=== PATIENT | female | born 1975 | race African-American/Black ===

== ENCOUNTER 2017-07-20 12:33 | Emergency (ER) | payer OTHER ==
--- NOTE | 2017-07-20 12:45 | PDOC ---
History of Present Illness - General History Source: Patient, EMS Exam Limitations: Intoxication - History of Present Illness Initial Comments: 07/20/17 13:03 The patient is a 41 year old female, with a significant PMH of hypertension, diabetes mellitus, who presents to the emergency department via EMS with alcohol intoxication. As per EMS, the patient was found with 7 empty pocket size bottles of vodka. Upon presentation, the patient is sleeping but arousable. The patient is a poor historian secondary to alcohol intoxication. Allergies: NKA - General Chief Complaint: Alcohol intoxication Stated Complaint: INTOX Time Seen by Provider: 07/20/17 12:44 Past History - Past Medical History Allergies/Adverse Reactions: Allergies Allergy/AdvReac Type Severity Reaction Status Date / Time No Known Allergies Allergy Verified 07/20/17 12:37 Home Medications: Ambulatory Orders Esomeprazole Magnesium [Nexium 24Hr] 40 mg PO DAILY 07/20/17 Famotidine [Pepcid] 40 mg PO DAILY 07/20/17 Trazodone HCl 200 mg PO HS 07/20/17 Review of Systems - Review of Systems Able to Perform ROS?: No (Secondary to intox. ) *Physical Exam - Vital Signs Last Vital Signs Temp Pulse Resp BP Pulse Ox 97.8 F 79 16 111/78 95 07/20/17 12:39 07/20/17 12:39 07/20/17 12:39 07/20/17 12:39 07/20/17 12:39 - Physical Exam Comments: 07/20/17 13:08 GENERAL: Somnolent but arousable. In no acute distress HEAD: No signs of trauma EYES: PERRLA, EOMI, sclera anicteric, conjunctiva clear ENT: Auricles normal inspection, hearing grossly normal, nares patent, oropharynx clear without exudates. Moist mucosa NECK: Normal ROM, supple, no lymphadenopathy, JVD, or masses LUNGS: Breath sounds equal, clear to auscultation bilaterally. No wheezes, and no crackles HEART: Regular rate and rhythm, normal S1 and S2, no murmurs, rubs or gallops ABDOMEN: Soft, nontender, normoactive bowel sounds. No guarding, no rebound. No masses EXTREMITIES: Normal range of motion, no edema. No clubbing or cyanosis. No cords, erythema, or tenderness NEUROLOGICAL: Cranial nerves II through XII grossly intact. Normal speech. SKIN: Warm, Dry, normal turgor, no rashes or lesions noted. ED Treatment Course - LABORATORY CBC & Chemistry Diagram: 07/20/17 12:58 07/20/17 12:58 *DC/Admit/Observation/Transfer - Attestations Scribe Attestion: 07/20/17 13:04 Documentation prepared by Du Salazar, acting as ophthalmic medical assistant for Candelaria Land MD. Diagnosis at time of Disposition: Intoxication - Discharge Dispostion Disposition: ELOPED Condition at time of disposition: Stable
[2017-07-20 12:48] VITALS: BP 111/78; PULSE 79; TEMP 97.8; BMI 21.2
[2017-07-20 13:45] LABS: BASO % 0.4 % (0-2.0); EOS % 1.9 % (0-4.5); HEMATOCRIT 33.2 % (32.4-45.2); LYMPH % 49.8 % (8-40); MCH 26.5 pg (25.7-33.7); MCHC 33.1 g/dl (32.0-36.0); MEAN PLT VOLUME 7.8 fl (7.5-11.1); MONO % 2.9 % (3.8-10.2); PLATELET COUNT 345 K/MM3 (134-434); RBC 4.15 M/mm3 (3.60-5.2); RDW 17.4 % (11.6-15.6); WHITE BLOOD COUNT 7.8 K/mm3 (4.0-10.0)
[2017-07-20 13:58] LABS: ALBUMIN 3.8 g/dl (3.4-5.0); ANION GAP 10 (8-16); BILIRUBIN,TOTAL 0.1 mg/dL (0.2-1.0); BLOOD UREA NITROGEN 16 mg/dL (7-18); CALCIUM 8.8 mg/dL (8.5-10.1); CHLORIDE 104 mmol/L (98-107); CO2 27 mmol/L (21-32); CREATININE 0.9 mg/dL (0.55-1.02); GLUCOSE,RANDOM 147 mg/dL (74-106); POTASSIUM 3.7 mmol/L (3.5-5.1); SGOT/AST 25 U/L (15-37); SGPT/ALT 31 U/L (12-78); SODIUM 141 mmol/L (136-145); TOT PROT 8.3 g/dl (6.4-8.2)
[2017-07-20 14:06] LABS: ALK PHOS 103 U/L (45-117)
== END 2017-07-20 15:58 | disposition left against medical advice (07) ==
LOC: EDSEX 12:33 → JER 12:33
DX: F10.120 Alcohol abuse with intoxication, uncomplicated (principal); I10 Essential (primary) hypertension; E11.9 Type 2 diabetes mellitus without complications
CPT/HCPCS: 36415; 80053; 80307; 82962; 85025; 99283-25

== ENCOUNTER 2017-07-20 16:57 | Emergency (ER) | payer OTHER ==
[2017-07-20] MEDS ORDERED: HALOPERIDOL LACTATE 5 MG/ML IM ONE (16:59)
[2017-07-20] MEDS ORDERED: LORazepam 2 MG/ML SDV VIAL ONE (17:02)
[2017-07-20] MEDS ORDERED: HALOPERIDOL LACTATE 5 MG/ML ONE (17:02)
--- NOTE | 2017-07-20 17:33 | PDOC ---
History of Present Illness - General Chief Complaint: Alcohol intoxication Stated Complaint: Alcohol intoxication Time Seen by Provider: 07/20/17 16:59 - History of Present Illness Initial Comments: 07/20/17 17:22 41 year old female, with a h/o DM, and HTN p/w Etoh intoxication. Patient was intially brought into hospital by EMS after found sleeping, butu arosuable in parking lot of [facility] and with 7 empty travel size bottles of vodka. History is limited d/t patient agitation and refusal to answer select questions. Patient eloped from earlier ED visit and was brought back in by ambulance. Patient currently arrives agitated and yelling profanities and making verbal threats to multiple staff members, with police at bedside. Not in police custody. Patient states that she is tired and does wish to "do this anymore." She states that she is prepared to , but does not have a plan, and denies SI. She believes that she is undergoing withdrawal from alcohol and states that she can predict alcohol withdrawal symptoms from previous experience. Denies F/C, N/V, CP, SOB, abdominal pain, diarrhea, constipation, urinary complaints, weakness, lightheadedness, sensory changes. Denies fall, head/neck/ back trauma, or LOC. PMH: as noted above SHx: She denies h/o IVDA, or tobacco use. She reports daily vodka intake for 5+ years. Patient desires rehab. Past History - Past Medical History Allergies/Adverse Reactions: Allergies Allergy/AdvReac Type Severity Reaction Status Date / Time No Known Allergies Allergy Verified 07/20/17 17:36 Home Medications: Ambulatory Orders Esomeprazole Magnesium [Nexium 24Hr] 40 mg PO DAILY 07/20/17 Famotidine [Pepcid] 40 mg PO DAILY 07/20/17 Trazodone HCl 200 mg PO HS 07/20/17 COPD: No Diabetes: Yes Psychiatric Problems: Yes (depression, alcoholism.) - Suicide/Smoking/Psychosocial Hx Smoking History: Unknown if ever smoked Have you smoked in the past 12 months: No If you are a former smoker, when did you quit?: 2009 Hx Alcohol Use: Yes (vodka) Drug/Substance Use Hx: No Substance Use Type: Alcohol Review of Systems - Review of Systems Comments:: 07/20/17 17:35 Unable to provide accurate ROS d/t inebriation. *Physical Exam - Physical Exam Comments: 07/20/17 18:14 GENERAL: Awake, alert, and fully oriented. Agitated. Patient partially compliant with physically exam. HEAD: No signs of trauma, normocephalic, atraumatic EYES: PERRLA, EOMI, sclera anicteric, conjunctiva clear ENT: Absent tongue fassicuclations. Auricles normal inspection, hearing grossly normal, nares patent, oropharynx clear without exudates. Moist mucosa NECK: Normal ROM, supple, no lymphadenopathy, JVD, or masses LUNGS: No distress, speaks full sentences, clear to auscultation bilaterally HEART: Regular rate and rhythm, normal S1 and S2, no murmurs, rubs or gallops, peripheral pulses normal and equal bilaterally. EXTREMITIES : Normal inspection, Normal range of motion, no edema. No clubbing or cyanosis. NEUROLOGICAL: Cranial nerves II through XII grossly intact. Normal speech, normal gait, no focal sensorimotor deficits PSYCH: Patient agitated with dysthmic mood and affect congruent with mood. No SI , HI. Speech non tangible, and non pressured. No flight of ideas. SKIN: Warm, Dry, normal turgor, no rashes or lesions noted ED Treatment Course - Medications Given in the ED: ED Medications Discontinued Medications Generic Name Dose Route Start Last Admin Trade Name Freq PRN Reason Stop Dose Admin Haloperidol 5 mg 07/20/17 16:59 07/20/17 17:18 Haldol Injection (Fast Acting) - IM 07/20/17 17:00 5 mg ONCE ONE Administration Lorazepam 2 mg 07/20/17 16:59 07/20/17 17:03 Ativan Injection - IM 07/20/17 17:00 2 mg ONCE ONE Administration Medical Decision Making - Medical Decision Making 07/20/17 17:36 41 year old female, with a h/o DM, HTN, EtoH dependence p/w Etoh intoxication, and returns to ED following elopmenet from earlier ED encounter. VSS, AF. Patient recieved 5 mg Haldol, and 2 mg Lorazepam following acute agitation and combativeness. We will hold patient for sobriety and place on one-to-one observation d/t risk of elopement in current inebriated/altered state. CBC, CMP from prior ED encounter ( 1200 06/12/18) were unremarkable with EtoH of 416. Clinically patient without evidence of EtoH withdrawal, or DT. Patient denies SI , and without plan or intent or evidence of self harm/injurous behavior. ED Course: Patient is sedated and resting with bedside sitter observing. 07/20/17 18:28 *DC/Admit/Observation/Transfer Diagnosis at time of Disposition: Intoxication - Discharge Dispostion Condition at time of disposition: Stable Decision to Admit order: No - Referrals - Patient Instructions Printed Discharge Instructions: DI for Alcohol Abuse Additional Instructions: Please return to the emergency department with any new or worsening symptoms or concerns. Please follow up with your primary care physician within 72 hours. - Post Discharge Activity - Attestations Physician Attestion: 07/20/17 18:27 I attest to the information provided in this note.
[2017-07-20 17:36] VITALS: BMI 21.2
--- NOTE | 2017-07-21 06:16 | PDOC ---
*Physical Exam - Vital Signs Last Vital Signs Temp Pulse Resp BP Pulse Ox 97.9 F 92 H 16 122/79 95 07/20/17 17:26 07/20/17 17:26 07/20/17 17:26 07/20/17 17:26 07/20/17 17:26 <Remi Diehl - Last Filed: 07/21/17 06:13> - Vital Signs Last Vital Signs Temp Pulse Resp BP Pulse Ox 97.8 F 69 16 116/66 97 07/21/17 07:00 07/21/17 07:00 07/21/17 07:00 07/21/17 07:00 07/21/17 07:00 <Zhang Tatum - Last Filed: 07/21/17 12:03> ED Treatment Course - Medications Given in the ED: ED Medications Discontinued Medications Generic Name Dose Route Start Last Admin Trade Name Kemq PRN Reason Stop Dose Admin Haloperidol 5 mg 07/20/17 16:59 07/20/17 17:18 Haldol Injection (Fast Acting) - IM 07/20/17 17:00 5 mg ONCE ONE Administration Lorazepam 2 mg 07/20/17 16:59 07/20/17 17:03 Ativan Injection - IM 07/20/17 17:00 2 mg ONCE ONE Administration <Remi Diehl - Last Filed: 07/21/17 06:13> - LABORATORY CBC & Chemistry Diagram: 07/21/17 10:34 07/21/17 10:34 - ADDITIONAL ORDERS Additional order review: Laboratory Results 07/21/17 07/21/17 07/21/17 10:34 10:34 10:34 WBC RBC Hgb Hct MCV MCH MCHC RDW Plt Count MPV Absolute Neuts (auto) Neutrophils % Lymphocytes % Monocytes % Eosinophils % Basophils % Nucleated RBC % Serum , Qual Negative Urine Color Ltyellow Urine Appearance Clear Urine pH 8.0 Ur Specific [place] 1.020 Urine Protein Negative Urine Glucose (UA) Negative Urine Ketones Negative Urine Blood Negative Urine Nitrite Negative Urine Bilirubin Negative Urine Urobilinogen Negative Ur Leukocyte Esterase Negative Opiates Screen Negative Methadone Screen Negative Barbiturate Screen Negative Phencyclidine Screen Negative Ur Amphetamines Screen Negative MDMA (Ecstasy) Screen Negative Benzodiazepines Screen Negative Cocaine Screen Negative U Marijuana (THC) Screen Negative 07/21/17 10:34 WBC 7.0 RBC 3.79 Hgb 9.9 L Hct 30.2 L MCV 79.7 L MCH 26.2 MCHC 32.9 RDW 17.6 H Plt Count 261 D MPV 8.1 Absolute Neuts (auto) 3.5 Neutrophils % 50.7 Lymphocytes % 42.9 H Monocytes % 4.2 Eosinophils % 1.1 Basophils % 1.1 Nucleated RBC % 0 Serum , Qual Urine Color Urine Appearance Urine pH Ur Specific [place] Urine Protein Urine Glucose (UA) Urine Ketones Urine Blood Urine Nitrite Urine Bilirubin Urine Urobilinogen Ur Leukocyte Esterase Opiates Screen Methadone Screen Barbiturate Screen Phencyclidine Screen Ur Amphetamines Screen MDMA (Ecstasy) Screen Benzodiazepines Screen Cocaine Screen U Marijuana (THC) Screen 07/21/17 10:34 RBC 3.79 MCV 79.7 L MCHC 32.9 RDW 17.6 H MPV 8.1 Neutrophils % 50.7 Lymphocytes % 42.9 H Monocytes % 4.2 Eosinophils % 1.1 Basophils % 1.1 - Medications Given in the ED: ED Medications Discontinued Medications Generic Name Dose Route Start Last Admin Trade Name Sandar PRN Reason Stop Dose Admin Haloperidol 5 mg 07/20/17 16:59 07/20/17 17:18 Haldol Injection (Fast Acting) - IM 07/20/17 17:00 5 mg ONCE ONE Administration Lorazepam 2 mg 07/20/17 16:59 07/20/17 17:03 Ativan Injection - IM 07/20/17 17:00 2 mg ONCE ONE Administration <Zhang Tatum - Last Filed: 07/21/17 12:03> Medical Decision Making - Medical Decision Making 07/21/17 06:14 after 13 hours of being here in the department, pt now wants to go to detox. Pt has not yet been medically cleared. Pt pending labs. <Remi Diehl - Last Filed: 07/21/17 06:13> - Medical Decision Making 07/21/17 12:02 Labs unremarkable. Pt reassessed - now awake, alert. Calm, cooperative, denies SI/HI/AVH. [facility]ing [facility] <Zhang Tatum - Last Filed: 07/21/17 12:03> *DC/Admit/Observation/Transfer <Remi Diehl - Last Filed: 07/21/17 06:13> <RcZhang - Last Filed: 07/21/17 12:03> Diagnosis at time of Disposition: Intoxication - Discharge Dispostion Condition at time of disposition: Stable - Referrals - Patient Instructions Printed Discharge Instructions: DI for Alcohol Abuse Additional Instructions: Please return to the emergency department with any new or worsening symptoms or concerns. Please follow up with your primary care physician within 72 hours. - Post Discharge Activity
[2017-07-21 07:35] VITALS: BP 116/66; PULSE 69; TEMP 97.8
[2017-07-21 11:16] LABS: BASO % 1.1 % (0-2.0); EOS % 1.1 % (0-4.5); HEMATOCRIT 30.2 % (32.4-45.2); HEMOGLOBIN 9.9 GM/dL (10.7-15.3); LYMPH % 42.9 % (8-40); MCH 26.2 pg (25.7-33.7); MCHC 32.9 g/dl (32.0-36.0); MEAN CELL VOLUME 79.7 fl (80-96); MEAN PLT VOLUME 8.1 fl (7.5-11.1); MONO % 4.2 % (3.8-10.2); NEUT % 50.7 % (42.8-82.8); PLATELET COUNT 261 K/MM3 (134-434); RBC 3.79 M/mm3 (3.60-5.2); RDW 17.6 % (11.6-15.6)
[2017-07-21 11:27] LABS: URINE APPEARANCE CLEAR; URINE BILIRUBIN NEGATIVE (<2.0 mg/dL); URINE BLOOD NEGATIVE (NEGATIVE); URINE COLOR LTYELLOW; URINE GLUCOSE (UA) NEGATIVE (NEGATIVE); URINE KETONE NEGATIVE (NEGATIVE); URINE LEUK ESTERASE NEGATIVE (NEGATIVE); URINE NITRITE NEGATIVE (NEGATIVE); URINE PROTEIN NEGATIVE (NEGATIVE); URINE UROBILINOGEN NEGATIVE mg/dL (0.2-1.0)
[2017-07-21 11:34] LABS: ALBUMIN 3.3 g/dl (3.4-5.0); ANION GAP 9 (8-16); BLOOD UREA NITROGEN 15 mg/dL (7-18); CALCIUM 8.4 mg/dL (8.5-10.1); CHLORIDE 100 mmol/L (98-107); CO2 26 mmol/L (21-32); GLUCOSE,RANDOM 113 mg/dL (74-106); POTASSIUM 3.8 mmol/L (3.5-5.1); SGPT/ALT 27 U/L (12-78); SODIUM 135 mmol/L (136-145)
[2017-07-21 11:37] LABS: ALK PHOS 86 U/L (45-117); BILIRUBIN,TOTAL 0.3 mg/dL (0.2-1.0); CREATININE 0.7 mg/dL (0.55-1.02); SGOT/AST 31 U/L (15-37); TOT PROT 7.1 g/dl (6.4-8.2)
[2017-07-21 12:01] LABS: COCAINE, UR NEGATIVE ng/ml (CUTOFF=300); METHADONE, UR NEGATIVE ng/ml (CUTOFF=300); OPIATES, URI NEGATIVE ng/ml (CUTOFF=300); PHENCYCLIDINE,URINE NEGATIVE ng/ml (CUTOFF=25); URINE AMPHETAMINES NEGATIVE ng/ml (CUTOFF=500); URINE BARBITURATES NEGATIVE ng/ml (CUTOFF=200); URINE BENZODIAZEPINES NEGATIVE ng/ml (CUTOFF=200)
== END 2017-07-21 12:28 | disposition home or self-care (01) ==
LOC: JER 16:57
PROC: 3E023NZ Introduction of Analgesics, Hypnotics, Sedatives into Muscle, Percutaneous Approach (ICD-10-PCS; principal; 2017-07-20)
DX: F10.120 Alcohol abuse with intoxication, uncomplicated (principal); F32.9 Major depressive disorder, single episode, unspecified; Z87.891 Personal history of nicotine dependence; E11.9 Type 2 diabetes mellitus without complications
CPT/HCPCS: 36415; 80053; 80307; 81003; 82962; 84703; 85025; 99284-25

== ENCOUNTER 2017-07-21 13:39 | Inpatient (IN) | payer OTHER ==
[2017-07-21 13:43] VITALS: BMI 23.4
--- NOTE | 2017-07-21 14:21 | HP ---
CIWA Score - CIWA Score Nausea/Vomitin Muscle Tremors: 2 Anxiety: 3 Agitation: 2 Paroxysmal Sweats: 3 Orientation: 0-Oriented Tacttile Disturbances: 1-Very Mild Itch/Numbness Auditory Disturbances: 0-None Visual Disturbances: 0-None Headache: 0-None Present CIWA-Ar Total Score: 13 Admission ROS S - HPI Chief Complaint: I need to detox from alcohol -i have been slipping up. Allergies/Adverse Reactions: Allergies Allergy/AdvReac Type Severity Reaction Status Date / Time No Known Allergies Allergy Verified 07/21/17 13:57 History of Present Illness: Pt began drinking at age 21 . Pt began abusing alcohol at age 27 pt stopped using alcohol and releapsed 1 yr ago . Exam Limitations: No Limitations - Ebola screening Have you traveled outside of the country in the last 21 days: No Have you had contact with anyone from an Ebola affected area: No Have you been sick,other than usual withdrawal symptoms: No Do you have a fever: No - Review of Systems Constitutional: Loss of Appetite, Malaise, Night Sweats, Changes in sleep EENT: reports: No Symptoms Reported Respiratory: reports: No Symptoms reported Cardiac: reports: Other (open heart surgery at age 9 for valvoplasty) GI: reports: Nausea, Indigestion : reports: No Symptoms Reported Musculoskeletal: reports: Back Pain, Joint Pain, Muscle Pain Integumentary: reports: No Symptoms Reported Neuro: reports: Tremors, Dizziness, Other (blackouts - last yesterday) Endocrine: reports: Increased Hunger, Increased Thirst, Increased Urine Hematology: reports: Anemia, Easy Bruising Psychiatric: reports: Depressed Other Systems: Reviewed and Negative Patient History - Patient Medical History Hx Anemia: Yes (feso4) Hx Asthma: No Hx Chronic Obstructive Pulmonary Disease (COPD): No Hx Cancer: No Hx Cardiac Disorders: Yes (valave replacement at age 9 yrs old.) Hx Congestive Heart Failure: No Hx Hypertension: Yes (on meds.) Hx Hypercholesterolemia: Yes (pravachol ) Hx Pacemaker: No HX Cerebrovascular Accident: No Hx Seizures: No Hx Dementia: No Hx Diabetes: Yes (metformin 850mg bid ) Hx Gastrointestinal Disorders: Yes (Pt states she has a hx of peptic ulcer.) Hx Liver Disease: No Hx Genitourinary Disorders: No Hx Sexually Transmitted Disorders: No Hx Renal Disease (ESRD): No Hx Thyroid Disease: No Hx Human Immunodeficiency Virus (HIV): No Hx Hepatitis C: No Hx Depression: Yes (ptsd) Hx Suicide Attempt: No Hx Bipolar Disorder: No Hx Schizophrenia: No - Patient Surgical History Past Surgical History: Yes Hx Neurologic Surgery: No Hx Cataract Extraction: No Hx Cardiac Surgery: Yes (Valve replacement at age 9 yrs old.) Hx Lung Surgery: No Hx Breast Surgery: No Hx Breast Biopsy: No Hx Abdominal Surgery: No Hx Appendectomy: No Hx Cholecystectomy: No Hx Genitourinary Surgery: No Hx Section: No Hx Orthopedic Surgery: No Hx Hysterectomy: No Anesthesia Reaction: No - PPD History Previous Implant?: Yes Documented Results: Positive w/proof Implanted On Prior R Admission?: No PPD to be Administered?: No - Reproductive History Patient is a Female of Child Bearing Age (11 -55 yrs old): Yes Last Menstrual Period: 07/07/17 Patient : No - Smoking Cessation Smoking history: Former smoker Have you smoked in the past 12 months: No If you are a former smoker, when did you quit?: 2009 Hx Chewing Tobacco Use: No Initiated information on smoking cessation: No 'Breaking Loose' booklet given: 07/21/17 - Substance & Tx. History Hx Alcohol Use: Yes Hx Substance Use: No Substance Use Type: Alcohol Hx Substance Use Treatment: Yes ([facility]. ) - Substances Abused Alcohol Route: Oral Frequency: Daily Amount used: 1 PINT VODKA Age of first use: 27 Date of Last Use: 07/20/17 Family Disease History - Family Disease History Family Disease History: Diabetes: Mother (ovarian ), CA: Mother Admission Physical Exam S - Vital Signs Vital Signs: Vital Signs - 24 hr 07/21/17 13:40 Temperature 98.8 F Pulse Rate 89 Respiratory 20 Rate Blood Pressure 155/103 - Physical General Appearance: Yes: No Apparent Distress, Tremorous, Anxious HEENTM: Yes: EOMI, Hearing grossly Normal, Normocephalic, Normal Voice, [place] Respiratory: Yes: Chest Non-Tender, Lungs Clear, Normal Breath Sounds, No Respiratory Distress Breast: Yes: Breast Exam Deferred Cardiology: Yes: Irregular, Surgical Scar Abdominal: Yes: Non Tender, Flat, Soft, Increased Bowel Sounds Genitourinary: Yes: Frequency Back: Yes: Decreased Range of Motion Musculoskeletal: Yes: Back pain, Muscle Pain Extremities: Yes: Tremors Neurological: Yes: automobile washer steam II-XII NML intact, Fully Oriented, Alert, Motor Strength 5/5, Normal Response, Finger to Nose, Depressed Affect Integumentary: Yes: Moist Lymphatic: Yes: Within Normal Limits - Diagnostic (1) Chronic alcoholism Current Visit: Yes Status: Chronic (2) Diabetes 1.5, managed as type 2 Current Visit: Yes Status: Chronic (3) Hyperlipidemia Current Visit: Yes Status: Chronic Qualifiers: Hyperlipidemia type: unspecified Qualified Code(s): E78.5 - Hyperlipidemia , unspecified (4) Anemia Current Visit: Yes Status: Chronic Qualifiers: Anemia type: unspecified type Qualified Code(s): D64.9 - Anemia, unspecified (5) History of valvuloplasty Current Visit: Yes Status: Chronic Cleared for Admission [facility] - Detox or Rehab [facility] Level of Care: Medically Managed Detox Regimen/Protocol: Librium [facility] Breath Alcohol Content Breath Alcohol Content: 0 Urine Pregancy Test - Result Urine Test Results: Negative- NO Line Present Urine Drug Screen - Results Drug Screen Negative: No Urine Drug Screen Results: BZO-Benzodiazepines, TCA-Tricyclic Antidepress
[2017-07-21] MEDS ORDERED: guaiFENesin/D-METHORPHAN HB 10 ML UNIT-DOSE CUPS PO PRN (15:49)
[2017-07-21] MEDS ORDERED: ACETAMINOPHEN 325 MG TABLET (FP) PO PRN (15:49)
[2017-07-21] MEDS ORDERED: MENTHOL/PHENOL 1 EACH UD MM PRN (15:49)
[2017-07-21] MEDS ORDERED: LOPERAMIDE HCL 2 MG CAPSULE PO PRN (15:49)
[2017-07-21] MEDS ORDERED: MAGNESIUM CITRATE 300 ML BOTTLE PO PRN (15:49)
[2017-07-21] MEDS ORDERED: chlordiazePOXIDE HCL 25 MG CAPSULE PO ONE (15:49)
[2017-07-21] MEDS ORDERED: MAGNESIUM HYDROX 2400MG/30ML ORAL SUSPENSION 30 ML CUP PO PRN (15:49)
[2017-07-21] MEDS ORDERED: IBUPROFEN 400 MG TABLET (FP) PO PRN (15:49)
[2017-07-21] MEDS ORDERED: MAG HYDROX/AL HYDROX/SIMETH 30 ML UNIT-DOSE CUP PO PRN (15:49)
[2017-07-21] MEDS ORDERED: P-EPHED 60MG/TRIPROLIDI 2.5MG TABLET PO PRN (15:49)
[2017-07-21] MEDS: chlordiazePOXIDE HCL 25 MG CAPSULE PO SCH ×2 (16:44→22:11)
[2017-07-21 18:22] LABS: URINE APPEARANCE SLCLOUDY; URINE BILIRUBIN NEGATIVE (<2.0 mg/dL); URINE COLOR YELLOW; URINE GLUCOSE (UA) NEGATIVE (NEGATIVE); URINE KETONE NEGATIVE (NEGATIVE); URINE LEUK ESTERASE NEGATIVE (NEGATIVE); URINE NITRITE NEGATIVE (NEGATIVE); URINE UROBILINOGEN NEGATIVE mg/dL (0.2-1.0)
[2017-07-21 18:29] LABS: URINE PROTEIN 1+ (NEGATIVE)
[2017-07-21 18:30] LABS: EPI CELLS MODERATE /HPF (FEW); URINE MUCUS RARE
[2017-07-21] MEDS: chlordiazePOXIDE HCL 25 MG CAPSULE PO PRN (21:15)
[2017-07-21] MEDS ORDERED: PANTOPRAZOLE 40 MG TABLET (FP) PO ONE (21:15)
[2017-07-21] MEDS: ATORVASTATIN CA 10 MG TABLET (FP) PO SCH (22:10)
[2017-07-21] MEDS: THIAMINE HCL 100 MG TABLET (FP) PO SCH (22:11)
[2017-07-21] MEDS: MELATONIN 5 MG TABLETS PO PRN (22:13)
[2017-07-22] MEDS: chlordiazePOXIDE HCL 25 MG CAPSULE PO SCH ×4 (09:14→22:10)
[2017-07-22] MEDS: FERROUS SO4 325 MG TABLET (FP) PO SCH (09:14)
--- NOTE | 2017-07-22 09:47 | PN ---
S CIWA - CIWA Score Nausea/Vomitin-Mild Nausea/No Vomiting Muscle Tremors: 2 Anxiety: 1-Mildly Anxious Agitation: 0-Normal Activity Paroxysmal Sweats: 1-Minimal Palms Moist Orientation: 0-Oriented Tacttile Disturbances: 0-None Auditory Disturbances: 0-None Visual Disturbances: 0-None Headache: 1-Very Mild CIWA-Ar Total Score: 6 BHS Progress Note (SOAP) Subjective: Patient evaluated while in bed. Alert and oriented x 3. In no acute distress. Complain of mild nausea with no vomiting or diarrhea. Admitted yesterday for Alcohol withdrawal. Has history of GERD. Laboratory Tests 07/21/17 07/21/17 07/22/17 14:17 18:02 05:46 POC Glucometer 245 153 Urine Color Yellow Urine Appearance Slcloudy Urine pH 8.0 Ur Specific [place] 1.024 Urine Protein 1+ H Urine Glucose (UA) Negative Urine Ketones Negative Urine Blood Negative Urine Nitrite Negative Urine Bilirubin Negative Urine Urobilinogen Negative Ur Leukocyte Esterase Negative Urine WBC (Auto) 1 Urine RBC (Auto) 7 Ur Epithelial Cells Moderate Urine Mucus Rare Vital Signs Temperature 97.7 F 07/22/17 09:26 Pulse Rate 80 07/22/17 09:26 Respiratory Rate 16 07/22/17 09:26 Blood Pressure 129/83 07/22/17 09:26 O2 Sat by Pulse Oximetry (%) Objective: 07/22/17 09:47 Obj: General: alert and oriented x 3. Resting in bed. In NAD. Skin: Warm, moist. Intact Car: S1S2 Resp: CTA BL Assessment: 07/22/17 09:48 A/P: Alcohol Withdrawal Plan: Will continue current treatment ordered increase oral fluids continue to monitor clinically
[2017-07-22] MEDS: FLUTICASONE PROP 0.05% 16 GM NASAL SPRAY NS SCH (10:16)
[2017-07-22] MEDS: PANTOPRAZOLE 40 MG TABLET (FP) PO SCH (10:17)
[2017-07-22] MEDS: PRENATAL VITAMINS W/ FOLIC ACID TABLET (FP) PO SCH (10:17)
[2017-07-22] MEDS: LISINOPRIL 5 MG TABLET (FP) PO SCH (10:17)
[2017-07-22] MEDS: CLINDAMYCIN PHOSPHATE 1% TOPICAL GEL 30 GM TUBE TP SCH (10:20)
[2017-07-22 10:22] LABS: HEMATOCRIT 28.9 % (32.4-45.2); HEMOGLOBIN 9.5 GM/dL (10.7-15.3); MCH 26.8 pg (25.7-33.7); MCHC 32.9 g/dl (32.0-36.0); MEAN CELL VOLUME 81.6 fl (80-96); MEAN PLT VOLUME 9.3 fl (7.5-11.1); PLATELET COUNT 234 K/MM3 (134-434); RBC 3.54 M/mm3 (3.60-5.2); RDW 17.1 % (11.6-15.6); WHITE BLOOD COUNT 6.2 K/mm3 (4.0-10.0)
--- NOTE | 2017-07-22 10:28 | CONSULT ---
[facility] Psychiatric Consult - Data Date of interview: 07/22/17 Admission source: [facility] Identifying data: This is 41 years old female, single mother of one, homeless, with psychiatric hospitalization history, with long history of Alcohol and Nicotine dependence,. reports withdrawal symptoms amd seeking for detox. Substance Abuse History: - Smoking Cessation. Smoking history: Former smoker. Have you smoked in the past 12 months: No. If you are a former smoker, when did you quit?: 2009. Hx Chewing Tobacco Use: No. Initiated information on smoking cessation: No. 'Breaking Loose' booklet given: 07/21/17. - Substance & Tx. History. Hx Alcohol Use: Yes. Hx Substance Use: No. Substance Use Type : Alcohol. Hx Substance Use Treatment: Yes ([facility] in [facility]. ). - Substances Abused. Alcohol. Route: Oral. Frequency: Daily. Amount used: 1 PINT VODKA. Age of first use: 27. Date of Last Use: 07/20/17 Medical History: Anemia history, DM-2, Hyperlipidemia Psychiatric History: Patient reports history ofm depression and anxiety, reports unclear psychiatric admission on 2017 at [facility], reports taking prior to admission: Doxepin 25mg pom qhs. Zoloft 50mg poqd. Patient denies suicidal, homicidal history. Physical/Sexual Abuse/Trauma History: Denies Additional Comment: Doxepin 25mg pom qhs. Zoloft 50mg poqd Mental Status Exam - Mental Status Exam Alert and Oriented to: Person Cognitive Function: Fair Patient Appearance: Unkempt Mood: Sad Affect: Flat Patient Behavior: Sedated Speech Pattern: Appropriate Voice Loudness: Mildly Soft/Quiet Thought Process: Goal Oriented Thought Disorder: Being Controlled Hallucinations: Denies Suicidal Ideation: Denies Homicidal Ideation: Denies Insight/Judgement: Fair Sleep: Difficulty falling asleep Appetite: Fair Muscle strength/Tone: Mild Hypotonicity Gait/Station: Normal Additional Comments: Doxepin 25mg pom qhs. Zoloft 50mg poqd Psychiatric Findings - Problem List ([place] 1, 2,3) (1) Alcohol dependence Current Visit: Yes Status: Acute (2) Nicotine dependence Current Visit: Yes Status: Acute (3) Drug-induced mood disorder Current Visit: Yes Status: Acute (4) Chronic alcoholism Current Visit: Yes Status: Chronic (5) Diabetes 1.5, managed as type 2 Current Visit: Yes Status: Chronic (6) History of valvuloplasty Current Visit: Yes Status: Chronic (7) Hyperlipidemia Current Visit: Yes Status: Chronic Qualifiers: Hyperlipidemia type: unspecified Qualified Code(s): E78.5 - Hyperlipidemia , unspecified - Initial Treatment Plan Initial Treatment Plan: Doxepin 25mg pom qhs. Zoloft 50mg poqd
[2017-07-22 10:42] LABS: ALBUMIN 3.1 g/dl (3.4-5.0); ANION GAP 11 (8-16); BLOOD UREA NITROGEN 12 mg/dL (7-18); CALCIUM 8.3 mg/dL (8.5-10.1); CHLORIDE 100 mmol/L (98-107); CO2 22 mmol/L (21-32); CREATININE 0.7 mg/dL (0.55-1.02); GLUCOSE,RANDOM 214 mg/dL (74-106); POTASSIUM 3.7 mmol/L (3.5-5.1); SGOT/AST 29 U/L (15-37); SGPT/ALT 26 U/L (12-78); SODIUM 133 mmol/L (136-145)
[2017-07-22 10:44] LABS: ALK PHOS 90 U/L (45-117); BILIRUBIN,TOTAL 0.2 mg/dL (0.2-1.0); TOT PROT 6.5 g/dl (6.4-8.2)
[2017-07-22] MEDS: SERTRALINE HCL 50 MG TABLET (FP) PO SCH (10:59)
--- NOTE | 2017-07-22 11:16 | EKG ---
Test Reason : Blood Pressure : / mmHG Vent. Rate : 084 BPM Atrial Rate : 084 BPM P-R Int : 168 ms QRS Dur : 076 ms QT Int : 340 ms P-R-T Axes : 033 054 038 degrees QTc Int : 401 ms SINUS RHYTHM WITH OCCASIONAL PREMATURE VENTRICULAR COMPLEXES T WAVE ABNORMALITY, CONSIDER ANTERIOR ISCHEMIA ABNORMAL ECG NO PREVIOUS ECGS AVAILABLE Confirmed by MICHAEL ROSALES MD ([id number]) on 07/22/2017 11:16:05 AM Referred By: Confirmed By:MICHAEL ROSALES MD
[2017-07-22] MEDS: chlordiazePOXIDE HCL 25 MG CAPSULE PO PRN ×2 (12:43→20:14)
[2017-07-22] MEDS: hydrOXYzine PAMOATE 25 MG CAPSULE (FP) PO PRN (16:02)
[2017-07-22] MEDS: ATORVASTATIN CA 10 MG TABLET (FP) PO SCH (22:10)
[2017-07-22] MEDS: DOXEPIN HCL 25 MG CAPSULE PO SCH (22:10)
[2017-07-22] MEDS: THIAMINE HCL 100 MG TABLET (FP) PO SCH (22:10)
[2017-07-22] MEDS: MELATONIN 5 MG TABLETS PO PRN (23:55)
[2017-07-23] MEDS: chlordiazePOXIDE HCL 25 MG CAPSULE PO PRN ×3 (02:48→19:32)
[2017-07-23] MEDS: chlordiazePOXIDE HCL 25 MG CAPSULE PO SCH ×2 (05:14→10:31)
[2017-07-23] MEDS ORDERED: INSULIN (NOVOLOG) ASPART 100 UNITS/ML 10ML VIAL ONE (07:14)
[2017-07-23] MEDS: FERROUS SO4 325 MG TABLET (FP) PO SCH (07:20)
[2017-07-23] MEDS: INSULIN SLIDING SCALE (NOVOLOG) 1 VIAL SQ SCH ×2 (07:20→17:19)
[2017-07-23] MEDS ORDERED: ERGOCALCIFEROL (VITAMIN D2) 50,000 UNIT CAPSULE (FP) PO SCH (10:00)
[2017-07-23] MEDS: CLINDAMYCIN PHOSPHATE 1% TOPICAL GEL 30 GM TUBE TP SCH (10:30)
[2017-07-23] MEDS: FLUTICASONE PROP 0.05% 16 GM NASAL SPRAY NS SCH (10:31)
[2017-07-23] MEDS: LISINOPRIL 5 MG TABLET (FP) PO SCH (10:32)
[2017-07-23] MEDS: PRENATAL VITAMINS W/ FOLIC ACID TABLET (FP) PO SCH (10:33)
[2017-07-23] MEDS: PANTOPRAZOLE 40 MG TABLET (FP) PO SCH (10:35)
--- NOTE | 2017-07-23 10:45 | PN ---
BHS Progress Note (SOAP) Subjective: Pt states she is feeling fine. Here from an inpt drug treatment facility- drank when she went out for a visit- did this twice and so was asked to go to detox. Says she is feeling fine today Objective: 07/23/17 10:40 CBC, BMP 07/22/17 08:50 07/22/17 08:50 Vital Signs 07/23/17 07/23/17 07:27 09:19 Temperature 97.9 F 97.5 F L Pulse Rate 68 67 Respiratory 18 18 Rate Blood Pressure 110/72 113/80 pt awake and alert and walking around, no signs of withdrawal Assessment: 07/23/17 10:41 Pt doing well with alcohol detox. Pt states with long h/o anemia-is not taking iron b/c it causes constipation. Also with diabetes and is getting treatment at the inpt program- her PCP. Will give Vitamin B12 as pt is on metformin- this depletes Vitamin B12. 07/23/17 10:49 Plan: Continue current detox protocol, will add B12 as pt is on metformin
--- NOTE | 2017-07-23 10:46 | PN ---
BHS CIWA - CIWA Score Nausea/Vomitin-No Nausea/No Vomiting (pt is doing well: 0 CIWA score) Muscle Tremors: None Anxiety: 0-No Anxiety, at Ease Agitation: 0-Normal Activity Paroxysmal Sweats: No Perspiration Orientation: 0-Oriented Tacttile Disturbances: 0-None Auditory Disturbances: 0-None (pt is doing fine today)
[2017-07-23] MEDS: SERTRALINE HCL 50 MG TABLET (FP) PO SCH (12:44)
[2017-07-23] MEDS: hydrOXYzine PAMOATE 25 MG CAPSULE (FP) PO PRN (15:34)
[2017-07-23] MEDS: chlordiazePOXIDE 5 MG CAPSULE PO SCH ×2 (16:33→22:12)
[2017-07-23] MEDS: THIAMINE HCL 100 MG TABLET (FP) PO SCH (22:12)
[2017-07-23] MEDS: DOXEPIN HCL 25 MG CAPSULE PO SCH (22:12)
[2017-07-23] MEDS: ATORVASTATIN CA 10 MG TABLET (FP) PO SCH (22:12)
[2017-07-24] MEDS: hydrOXYzine PAMOATE 25 MG CAPSULE (FP) PO PRN ×2 (00:36→22:08)
[2017-07-24] MEDS: chlordiazePOXIDE HCL 25 MG CAPSULE PO PRN ×3 (00:37→14:05)
[2017-07-24] MEDS: chlordiazePOXIDE 5 MG CAPSULE PO SCH ×2 (05:06→10:25)
[2017-07-24] MEDS: INSULIN SLIDING SCALE (NOVOLOG) 1 VIAL SQ SCH ×2 (06:35→17:21)
[2017-07-24] MEDS: FERROUS SO4 325 MG TABLET (FP) PO SCH (07:16)
[2017-07-24] MEDS: CLINDAMYCIN PHOSPHATE 1% TOPICAL GEL 30 GM TUBE TP SCH (10:23)
[2017-07-24] MEDS: LISINOPRIL 5 MG TABLET (FP) PO SCH (10:24)
[2017-07-24] MEDS: PANTOPRAZOLE 40 MG TABLET (FP) PO SCH (10:24)
[2017-07-24] MEDS: PRENATAL VITAMINS W/ FOLIC ACID TABLET (FP) PO SCH (10:24)
[2017-07-24] MEDS: CYANOCOBALAMIN 1,000 MCG TABLET (FP) PO SCH (10:24)
[2017-07-24] MEDS: FLUTICASONE PROP 0.05% 16 GM NASAL SPRAY NS SCH (10:25)
[2017-07-24] MEDS: SERTRALINE HCL 50 MG TABLET (FP) PO SCH (10:30)
--- NOTE | 2017-07-24 16:01 | PN ---
BHS Progress Note (SOAP) Subjective: sleep disturbance shakes abd cramp Objective: 07/24/17 15:59 A & O x [address] in no distress Vital Signs Temperature 98.1 F 07/24/17 14:15 Pulse Rate 96 H 07/24/17 14:15 Respiratory Rate 18 07/24/17 14:15 Blood Pressure 124/83 07/24/17 14:15 O2 Sat by Pulse Oximetry (%) Assessment: 07/24/17 16:00 withdrawal sx Plan: continue detox
[2017-07-24] MEDS: chlordiazePOXIDE HCL 10 MG CAPSULE PO SCH ×2 (17:19→22:07)
[2017-07-24] MEDS: DOXEPIN HCL 25 MG CAPSULE PO SCH (22:07)
[2017-07-24] MEDS: ATORVASTATIN CA 10 MG TABLET (FP) PO SCH (22:07)
[2017-07-24] MEDS: THIAMINE HCL 100 MG TABLET (FP) PO SCH (22:07)
[2017-07-25] MEDS: MELATONIN 5 MG TABLETS PO PRN ×2 (00:59→22:29)
[2017-07-25] MEDS: chlordiazePOXIDE HCL 10 MG CAPSULE PO SCH ×2 (05:10→10:43)
[2017-07-25] MEDS: INSULIN SLIDING SCALE (NOVOLOG) 1 VIAL SQ SCH ×2 (07:34→17:30)
[2017-07-25] MEDS: FERROUS SO4 325 MG TABLET (FP) PO SCH (07:36)
--- NOTE | 2017-07-25 09:00 | DS ---
[facility] Detox Discharge Summary Admission Date: 07/21/17 Discharge Date: 07/25/17 - History Present History: Alcohol Dependence Additional Comments: 41 years old female admitted 07/21/17 for alcohol withdrawal sx completed alcohol detox regimen tolerated well denies alcohol withdrawal sx aftercare [facility] [place] oriented x 3 no acute distress brief motivational intervention promotes sobriety - Physical Exam Results Vital Signs: Vital Signs Temperature 97.0 F L 07/25/17 06:00 Pulse Rate 73 07/25/17 06:00 Respiratory Rate 18 07/25/17 06:00 Blood Pressure 102/63 07/25/17 06:00 O2 Sat by Pulse Oximetry (%) Pertinent Admission Physical Exam Findings: alcohol withdrawal sx Vital Signs Temperature 97.0 F L 07/25/17 06:00 Pulse Rate 73 07/25/17 06:00 Respiratory Rate 18 07/25/17 06:00 Blood Pressure 102/63 07/25/17 06:00 O2 Sat by Pulse Oximetry (%) Laboratory Last Values WBC 6.2 K/mm3 (4.0-10.0) 07/22/17 08:50 RBC 3.54 M/mm3 (3.60-5.2) L 07/22/17 08:50 Hgb 9.5 GM/dL (10.7-15.3) L 07/22/17 08:50 Hct 28.9 % (32.4-45.2) L 07/22/17 08:50 MCV 81.6 fl (80-96) 07/22/17 08:50 MCH 26.8 pg (25.7-33.7) 07/22/17 08:50 MCHC 32.9 g/dl (32.0-36.0) 07/22/17 08:50 RDW 17.1 % (11.6-15.6) H 07/22/17 08:50 Plt Count 234 K/MM3 (134-434) 07/22/17 08:50 MPV 9.3 fl (7.5-11.1) D 07/22/17 08:50 Sodium 133 mmol/L (136-145) L 07/22/17 08:50 Potassium 3.7 mmol/L (3.5-5.1) 07/22/17 08:50 Chloride 100 mmol/L (98-107) 07/22/17 08:50 Carbon Dioxide 22 mmol/L (21-32) 07/22/17 08:50 Anion Gap 11 (8-16) 07/22/17 08:50 BUN 12 mg/dL (7-18) 07/22/17 08:50 Creatinine 0.7 mg/dL (0.55-1.02) 07/22/17 08:50 Creat Clearance w eGFR > 60 (>60) 07/22/17 08:50 POC Glucometer 178 UNITS (80-120) 07/25/17 05:09 Random Glucose 214 mg/dL (74-106) H 07/22/17 08:50 Calcium 8.3 mg/dL (8.5-10.1) L 07/22/17 08:50 Total Bilirubin 0.2 mg/dL (0.2-1.0) D 07/22/17 08:50 AST 29 U/L (15-37) 07/22/17 08:50 ALT 26 U/L (12-78) 07/22/17 08:50 Alkaline Phosphatase 90 U/L (45-117) 07/22/17 08:50 Total Protein 6.5 g/dl (6.4-8.2) 07/22/17 08:50 Albumin 3.1 g/dl (3.4-5.0) L 07/22/17 08:50 Urine Color Yellow 07/21/17 18:02 Urine Appearance Slcloudy 07/21/17 18:02 Urine pH 8.0 (5.0-8.0) 07/21/17 18:02 Ur Specific [place] 1.024 (1.001-1.035) 07/21/17 18:02 Urine Protein 1+ (NEGATIVE) H 07/21/17 18:02 Urine Glucose (UA) Negative (NEGATIVE) 07/21/17 18:02 Urine Ketones Negative (NEGATIVE) 07/21/17 18:02 Urine Blood Negative (NEGATIVE) 07/21/17 18:02 Urine Nitrite Negative (NEGATIVE) 07/21/17 18:02 Urine Bilirubin Negative (<2.0 mg/dL) 07/21/17 18:02 Urine Urobilinogen Negative mg/dL (0.2-1.0) 07/21/17 18:02 Ur Leukocyte Esterase Negative (NEGATIVE) 07/21/17 18:02 Urine WBC (Auto) 1 /hpf (3-5) 07/21/17 18:02 Urine RBC (Auto) 7 /hpf (0-3) 07/21/17 18:02 Ur Epithelial Cells Moderate /HPF (FEW) 07/21/17 18:02 Urine Mucus Rare 07/21/17 18:02 RPR Titer Nonreactive (NONREACTIVE) 07/22/17 08:50 lab noted - Treatment Hospital Course: Detox Protocol Followed, Detoxed Safely, Responded well, Discharged Condition Good, Rehab Referral Accepted Patient has Accepted [place] [facility] [place] [facility] [place] - Medication Discharge Medications: Ambulatory Orders Esomeprazole Magnesium [Nexium 24Hr] 40 mg PO DAILY 07/20/17 Ergocalciferol (Vitamin D2) [Drisdol] 50,000 unit PO WEEKLY 07/21/17 Ferrous Sulfate [Feosol] 325 mg PO HS 07/21/17 Ibuprofen [Motrin -] 400 mg PO TID PRN 07/21/17 Sertraline HCl [Zoloft -] 50 mg PO DAILY 07/21/17 Doxepin HCl [Sinequan -] 25 mg PO HS #30 capsule 07/22/17 Sertraline HCl [Zoloft -] 50 mg PO DAILY #30 tablet 07/22/17 Clindamycin 1% Gel [Cleocin 1% Gel -] 1 applic TP DAILY #1 tube 07/25/17 Fluticasone Prop 0.05% Nasal [Flonase -] 1 - 2 spray NS DAILY #1 spray 07/25/17 Lisinopril [Prinivil] 2.5 mg PO DAILY #30 tablet 07/25/17 Lisinopril [Zestril] 2.5 mg PO DAILY #30 tablet 07/25/17 Metformin HCl 850 mg PO BID #60 tablet 07/25/17 Pravastatin Sodium 10 mg PO HS #30 tablet 07/25/17 - Diagnosis (1) Alcohol dependence with uncomplicated withdrawal Current Visit: Yes Status: Acute (2) Diabetes 1.5, managed as type 2 Current Visit: Yes Status: Chronic (3) Hyperlipidemia Current Visit: Yes Status: Chronic Qualifiers: Hyperlipidemia type: unspecified Qualified Code(s): E78.5 - Hyperlipidemia , unspecified - AMA Did Patient Leave Against Medical Advice: No
[2017-07-25] MEDS: CLINDAMYCIN PHOSPHATE 1% TOPICAL GEL 30 GM TUBE TP SCH (10:42)
[2017-07-25] MEDS: PANTOPRAZOLE 40 MG TABLET (FP) PO SCH (10:43)
[2017-07-25] MEDS: LISINOPRIL 5 MG TABLET (FP) PO SCH (10:43)
[2017-07-25] MEDS: FLUTICASONE PROP 0.05% 16 GM NASAL SPRAY NS SCH (10:43)
[2017-07-25] MEDS: PRENATAL VITAMINS W/ FOLIC ACID TABLET (FP) PO SCH (10:44)
[2017-07-25] MEDS: SERTRALINE HCL 50 MG TABLET (FP) PO SCH (10:44)
[2017-07-25] MEDS: CYANOCOBALAMIN 1,000 MCG TABLET (FP) PO SCH (10:44)
[2017-07-25] MEDS: hydrOXYzine PAMOATE 25 MG CAPSULE (FP) PO PRN (14:34)
[2017-07-25] MEDS: THIAMINE HCL 100 MG TABLET (FP) PO SCH (22:28)
[2017-07-25] MEDS: DOXEPIN HCL 25 MG CAPSULE PO SCH (22:28)
[2017-07-25] MEDS: ATORVASTATIN CA 10 MG TABLET (FP) PO SCH (22:28)
[2017-07-26] MEDS: INSULIN SLIDING SCALE (NOVOLOG) 1 VIAL SQ SCH (06:43)
[2017-07-26] MEDS: FERROUS SO4 325 MG TABLET (FP) PO SCH (07:17)
--- NOTE | 2017-07-26 08:47 | DS ---
[facility] Detox Discharge Summary Admission Date: 07/21/17 Discharge Date: 07/26/17 - History Present History: Alcohol Dependence Additional Comments: 41 years old female admitted 07/21/17 for alcohol withdrawal sx waiting for [facility] bed available encourage patient explores [facility] recommend follow up with primary care provider for anemia and alcohol related health issues - Physical Exam Results Vital Signs: Vital Signs Temperature 97.9 F 07/26/17 06:40 Pulse Rate 69 07/26/17 06:40 Respiratory Rate 16 07/26/17 06:40 Blood Pressure 113/78 07/26/17 06:40 O2 Sat by Pulse Oximetry (%) Pertinent Admission Physical Exam Findings: alcohol withdrawal sx Vital Signs Temperature 97.9 F 07/26/17 06:40 Pulse Rate 69 07/26/17 06:40 Respiratory Rate 16 07/26/17 06:40 Blood Pressure 113/78 07/26/17 06:40 O2 Sat by Pulse Oximetry (%) Laboratory Last Values WBC 6.2 K/mm3 (4.0-10.0) 07/22/17 08:50 RBC 3.54 M/mm3 (3.60-5.2) L 07/22/17 08:50 Hgb 9.5 GM/dL (10.7-15.3) L 07/22/17 08:50 Hct 28.9 % (32.4-45.2) L 07/22/17 08:50 MCV 81.6 fl (80-96) 07/22/17 08:50 MCH 26.8 pg (25.7-33.7) 07/22/17 08:50 MCHC 32.9 g/dl (32.0-36.0) 07/22/17 08:50 RDW 17.1 % (11.6-15.6) H 07/22/17 08:50 Plt Count 234 K/MM3 (134-434) 07/22/17 08:50 MPV 9.3 fl (7.5-11.1) D 07/22/17 08:50 Sodium 133 mmol/L (136-145) L 07/22/17 08:50 Potassium 3.7 mmol/L (3.5-5.1) 07/22/17 08:50 Chloride 100 mmol/L (98-107) 07/22/17 08:50 Carbon Dioxide 22 mmol/L (21-32) 07/22/17 08:50 Anion Gap 11 (8-16) 07/22/17 08:50 BUN 12 mg/dL (7-18) 07/22/17 08:50 Creatinine 0.7 mg/dL (0.55-1.02) 07/22/17 08:50 Creat Clearance w eGFR > 60 (>60) 07/22/17 08:50 POC Glucometer 160 UNITS (80-120) 07/26/17 06:25 Random Glucose 214 mg/dL (74-106) H 07/22/17 08:50 Calcium 8.3 mg/dL (8.5-10.1) L 07/22/17 08:50 Total Bilirubin 0.2 mg/dL (0.2-1.0) D 07/22/17 08:50 AST 29 U/L (15-37) 07/22/17 08:50 ALT 26 U/L (12-78) 07/22/17 08:50 Alkaline Phosphatase 90 U/L (45-117) 07/22/17 08:50 Total Protein 6.5 g/dl (6.4-8.2) 07/22/17 08:50 Albumin 3.1 g/dl (3.4-5.0) L 07/22/17 08:50 Urine Color Yellow 07/21/17 18:02 Urine Appearance Slcloudy 07/21/17 18:02 Urine pH 8.0 (5.0-8.0) 07/21/17 18:02 Ur Specific [place] 1.024 (1.001-1.035) 07/21/17 18:02 Urine Protein 1+ (NEGATIVE) H 07/21/17 18:02 Urine Glucose (UA) Negative (NEGATIVE) 07/21/17 18:02 Urine Ketones Negative (NEGATIVE) 07/21/17 18:02 Urine Blood Negative (NEGATIVE) 07/21/17 18:02 Urine Nitrite Negative (NEGATIVE) 07/21/17 18:02 Urine Bilirubin Negative (<2.0 mg/dL) 07/21/17 18:02 Urine Urobilinogen Negative mg/dL (0.2-1.0) 07/21/17 18:02 Ur Leukocyte Esterase Negative (NEGATIVE) 07/21/17 18:02 Urine WBC (Auto) 1 /hpf (3-5) 07/21/17 18:02 Urine RBC (Auto) 7 /hpf (0-3) 07/21/17 18:02 Ur Epithelial Cells Moderate /HPF (FEW) 07/21/17 18:02 Urine Mucus Rare 07/21/17 18:02 RPR Titer Nonreactive (NONREACTIVE) 07/22/17 08:50 lab noted anemia - Treatment Hospital Course: Detox Protocol Followed, Detoxed Safely, Responded well, Discharged Condition Good, Rehab Referral Accepted Patient has Accepted a [facility] Referral to: [facility] - Medication Discharge Medications: Ambulatory Orders Esomeprazole Magnesium [Nexium 24Hr] 40 mg PO DAILY 07/20/17 Ergocalciferol (Vitamin D2) [Drisdol] 50,000 unit PO WEEKLY 07/21/17 Ferrous Sulfate [Feosol] 325 mg PO HS 07/21/17 Ibuprofen [Motrin -] 400 mg PO TID PRN 07/21/17 Sertraline HCl [Zoloft -] 50 mg PO DAILY 07/21/17 Doxepin HCl [Sinequan -] 25 mg PO HS #30 capsule 07/22/17 Sertraline HCl [Zoloft -] 50 mg PO DAILY #30 tablet 07/22/17 Clindamycin 1% Gel [Cleocin 1% Gel -] 1 applic TP DAILY #1 tube 07/25/17 Fluticasone Prop 0.05% Nasal [Flonase -] 1 - 2 spray NS DAILY #1 spray 07/25/17 Lisinopril [Prinivil] 2.5 mg PO DAILY #30 tablet 07/25/17 Lisinopril [Zestril] 2.5 mg PO DAILY #30 tablet 07/25/17 Metformin HCl 850 mg PO BID #60 tablet 07/25/17 Pravastatin Sodium 10 mg PO HS #30 tablet 07/25/17 - Diagnosis (1) Alcohol dependence with uncomplicated withdrawal Current Visit: Yes Status: Acute (2) Diabetes 1.5, managed as type 2 Current Visit: Yes Status: Chronic (3) Hyperlipidemia Current Visit: Yes Status: Chronic Qualifiers: Hyperlipidemia type: unspecified Qualified Code(s): E78.5 - Hyperlipidemia , unspecified (4) Anemia Current Visit: Yes Status: Chronic Qualifiers: Anemia type: iron deficiency Qualified Code(s): D50.8 - Other iron deficiency anemias - AMA Did Patient Leave Against Medical Advice: No
[2017-07-26 09:14] VITALS: BP 126/75; PULSE 86; TEMP 97.5
[2017-07-26] MEDS: CLINDAMYCIN PHOSPHATE 1% TOPICAL GEL 30 GM TUBE TP SCH (10:00)
[2017-07-26] MEDS: FLUTICASONE PROP 0.05% 16 GM NASAL SPRAY NS SCH (10:29)
[2017-07-26] MEDS: PRENATAL VITAMINS W/ FOLIC ACID TABLET (FP) PO SCH (10:30)
[2017-07-26] MEDS: PANTOPRAZOLE 40 MG TABLET (FP) PO SCH (10:30)
[2017-07-26] MEDS: CYANOCOBALAMIN 1,000 MCG TABLET (FP) PO SCH (10:30)
[2017-07-26] MEDS: LISINOPRIL 5 MG TABLET (FP) PO SCH (10:30)
[2017-07-26] MEDS: SERTRALINE HCL 50 MG TABLET (FP) PO SCH (10:30)
[2017-07-26] MEDS: hydrOXYzine PAMOATE 25 MG CAPSULE (FP) PO PRN (10:32)
== END 2017-07-26 11:23 | disposition other institution (70) | DRG 775 ==
LOC: YASAS 13:39 → Y6N 15:09
PROVIDERS: ADMIT Family Medicine Addiction Medicine; ATTEND Family Medicine Addiction Medicine
PROC: HZ2ZZZZ Detoxification Services for Substance Abuse Treatment (ICD-10-PCS; principal; 2017-07-21)
DX: F10.230 Alcohol dependence with withdrawal, uncomplicated (principal); F17.210 Nicotine dependence, cigarettes, uncomplicated; F19.24 Other psychoactive substance dependence with psychoactive substance-induced mood disorder; E13.9 Other specified diabetes mellitus without complications; E78.5 Hyperlipidemia, unspecified; D50.8 Other iron deficiency anemias; Z95.2 Presence of prosthetic heart valve; Z79.84 Long term (current) use of oral hypoglycemic drugs
CPT/HCPCS: 36415; 71046-TC-FY; 80053; 81003; 81015; 82962; 85027; 86593; 93005; 93010